=== PATIENT | female | born 1975 | race Caucasian/White ===

== ENCOUNTER → 2018-03-22 07:19 | Outpatient (CLI) | payer OTHER, SELFPAY ==
[2018-03-22 08:44] LABS: Thyroid Stimulating Hormone 1.52 uIU/ml (0.358-3.740)
== END ==
PROVIDERS: Visit Provider Nurse Practitioner
DX: E03.9 Hypothyroidism, unspecified (principal)
CPT/HCPCS: 36415; 84443

== ENCOUNTER → 2020-08-07 12:28 | Outpatient (CLI) | payer OTHER, SELFPAY | PROVIDERS: PCP Family Medicine; Visit Provider Nurse Practitioner Family | DX: G47.30 Sleep apnea, unspecified (principal); I10 Essential (primary) hypertension; R40.0 Somnolence; R51.9 Headache, unspecified; R06.83 Snoring | CPT/HCPCS: 95806 ==

== ENCOUNTER 2021-03-30 08:30 | Outpatient (RCR) | payer OTHER, SELFPAY | END 2021-03-30 08:35 | disposition home or self-care (01) | LOC: PT 08:30 | PROVIDERS: PCP Family Medicine; Visit Provider Orthopaedic Surgery Adult Reconstructive Orthopaedic Surgery | DX: S83.412A Sprain of medial collateral ligament of left knee, initial encounter (principal) | CPT/HCPCS: 97010; 97014; 97033; 97035; 97110; 97163; 97164; 97530; G0283 ==

== ENCOUNTER → 2021-12-30 13:37 | Outpatient (CLI) | payer OTHER, SELFPAY ==
--- NOTE | 2021-12-30 13:44 | XR_ITS ---
FINAL REPORT CLINICAL HISTORY: DISORDER OF RIGHT ROTATOR CUFF FINDINGS: Right shoulder Three views were obtained. There is no acute fracture or dislocation. There is mild AC joint arthropathy. No soft tissue abnormality is identified. IMPRESSION: No acute process. Reviewed, Interpreted and Dictated by Ariana Nunez MD Transcribed by Toyin Lombardo Authenticated and [facility]
== END ==
PROVIDERS: PCP Nurse Practitioner Family; Visit Provider Nurse Practitioner
DX: M67.911 Unspecified disorder of synovium and tendon, right shoulder (principal)
CPT/HCPCS: 73030

== ENCOUNTER 2022-02-04 17:00 | Outpatient (RCR) | payer OTHER, SELFPAY | END 2022-02-04 17:05 | disposition home or self-care (01) | LOC: PT 17:00 | PROVIDERS: PCP Nurse Practitioner Family; Visit Provider Nurse Practitioner | DX: M67.911 Unspecified disorder of synovium and tendon, right shoulder (principal) | CPT/HCPCS: 97010; 97014; 97033; 97110; 97112; 97140; 97163; 97164; G0283 ==

== ENCOUNTER → 2022-03-02 13:26 | Outpatient (CLI) | payer OTHER, SELFPAY | PROVIDERS: PCP Nurse Practitioner Family; Visit Provider Nurse Practitioner Family | DX: M25.511 Pain in right shoulder (principal) ==

== ENCOUNTER → 2022-04-14 12:54 | Outpatient (CLI) | payer OTHER, SELFPAY ==
--- NOTE | 2022-04-14 | CA_ITS ---
FINAL REPORT TECHNIQUE: Ultrasound images of the deep venous system were obtained from the left groin to the calf veins. CLINICAL HISTORY: HTN, left knee injury 11/2020 edema since, obesity. COMPARISON: None FINDINGS: The deep venous system is normally compressible. Normal flow is identified. IMPRESSION: No evidence of left lower extremity DVT. Reviewed, Interpreted and Dictated by Geoffrey Hobson III, MD Transcribed by Liv Klein Authenticated and [facility]
== END ==
PROVIDERS: PCP Nurse Practitioner Family; Visit Provider Nurse Practitioner Family
DX: I83.12 Varicose veins of left lower extremity with inflammation (principal); M79.89 Other specified soft tissue disorders
CPT/HCPCS: 93971

== ENCOUNTER → 2023-03-07 02:00 | Outpatient (CLI) | payer OTHER, SELFPAY ==
[2023-03-07 18:38] LABS: Cholesterol 162 mg/dl (140-200); HDL Cholesterol 80 mg/dl (40-60); Triglycerides 62 mg/dl (30-150); VLDL Cholesterol 12 mg/dL (0-40)
[2023-03-07 18:50] LABS: Direct LDL Cholesterol 80.14 mg/dL (100-129)
[2023-03-07 18:56] LABS: T4 (Thyroxine) 10.1 ug/dl (5.53-11.0)
[2023-03-07 19:10] LABS: Thyroid Stimulating Hormone 3.09 uIU/mL (0.465-4.68)
[2023-03-09 10:14] LABS: Triiodothyronine (T3) Free 3.4 pg/mL (2.0-4.4)
== END ==
PROVIDERS: PCP Nurse Practitioner Family; Visit Provider Nurse Practitioner Family
DX: I10 Essential (primary) hypertension (principal); Z13.29 Encounter for screening for other suspected endocrine disorder; Z79.899 Other long term (current) drug therapy
CPT/HCPCS: 80061; 84436; 84443; 84481

== ENCOUNTER 2024-04-12 13:46 | Outpatient (CLI) | payer OTHER, SELFPAY ==
--- NOTE | 2024-04-12 13:51 | XR_ITS ---
FINAL REPORT CLINICAL HISTORY: right foot pain COMPARISON: None FINDINGS: RIGHT FOOT 3 views of the right foot were obtained. There is no acute fracture or dislocation. Visualized joint spaces are normally aligned. A moderate plantar calcaneal spur is present. Soft tissues are unremarkable. IMPRESSION: No acute bony abnormality. Reviewed, Interpreted and Dictated by Pietro Mcgill MD Transcribed by Rina Lopez Authenticated and [facility]
[2024-04-12 16:31] LABS: Microscopic, Urine URINE MICROSCOPIC (MICROSCOPIC)
[2024-04-12 17:11] LABS: Basophils % 0.2 % (0.1-2.0); Eosinophils # 0.1 K/mm3 (0.0-0.4); Eosinophils % 0.8 % (0.1-12.0); Hematocrit 40.1 % (37.0-47.0); Hemoglobin 13.2 g/dL (12.2-16.2); Lymphocytes # 2.5 K/mm3 (0.7-4.5); Lymphocytes % 25.5 % (10-50); Mean Corpuscular HGB Conc 32.9 g/dL (31.8-35.4); Mean Corpuscular Hemoglobin 28.6 pg (27.0-31.2); Mean Corpuscular Volume 86.8 fl (81-99); Mean Platelet Volume 10.9 fl (7.4-10.4); Monocytes # 0.6 K/mm3 (0.1-1.0); Monocytes % 6.6 % (1.7-9.3); Neutrophils # 6.5 K/mm3 (1.8-7.8); Neutrophils % 66.7 % (37.0-80.0); Platelet Count 327 K/mm3 (142-424); Red Blood Count 4.62 M/mm3 (4.20-5.40); Red Cell Distribution Width 12.9 % (11.5-17.5); White Blood Count 9.7 K/mm3 (4.8-10.8)
[2024-04-12 17:26] LABS: Appearance,Urine CLEAR (Clear); Bilirubin,Urine Negative (Negative); Blood, Urine Negative (Negative); Color,Urine YELLOW (Yellow); Glucose,Urine (UA) Negative (Negative); Ketones,Urine Negative (Negative); Leukocyte Esterase,Urine Negative (Negative); Nitrate,Urine Negative (Negative); Protein,Urine Negative (Negative); Specific Gravity, Urine 1.015 (1.005-1.030); Urobilinogen,Urine 0.2 EU/dl (0.2)
[2024-04-12 18:00] LABS: Alanine Aminotransferase 25 U/L (12-78); Albumin Level 4.3 g/dl (3.5-5.0); Alkaline Phosphatase 54 U/L (38-126); Anion Gap 14.1 mEq/L (5-15); Aspartate Amino Transferase 29 U/L (14-36); Bilirubin,Total 0.5 mg/dl (0.2-1.3); Blood Urea Nitrogen 14 mg/dl (7-17); Calcium 9.2 mg/dl (8.4-10.2); Carbon Dioxide 24 mmol/L (22.0-30.0); Chloride 102 mmol/L (98-107); Chol/HDL Ratio 3.1 (1-3.5); Cholesterol 134 mg/dl (140-200); Estimated Glomerular Filt Rate 108 ml/min (>60); GFR (African American) 130 ML/MIN (>60); Globulin 2.1 g/dL (1.3-3.2); Glucose 78 mg/dl (74-100); HDL Cholesterol 43 mg/dl (40-60); Potassium 4.1 mmoL/L (3.5-5.1); Sodium 136 mmol/L (136-145); Total Protein,Serum 6.4 g/dl (6.3-8.2); Triglycerides 67 mg/dl (30-150); VLDL Cholesterol 13 mg/dL (0-40)
[2024-04-12 18:11] LABS: Direct LDL Cholesterol 75.49 mg/dL (100-129)
[2024-04-12 18:17] LABS: Free T4 (Free Thyroxine) 1.38 ng/dl (0.78-2.19)
[2024-04-12 18:18] LABS: 25-OH Vitamin D, Total 57.5 ng/mL (30-100)
[2024-04-12 18:27] LABS: Hemoglobin A1C 5.1 % (4.0-6.0)
[2024-04-12 19:01] LABS: Iron 87 ug/dL (37-170)
[2024-04-12 19:38] LABS: Ferritin 56.6 ng/ml (6.24-137)
[2024-04-12 19:44] LABS: HIV Combo NEGATIVE (Negative)
[2024-04-12 19:50] LABS: Hepatitis C Ab Qual. W/ RFX NEGATIVE (Negative)
[2024-04-12 19:57] LABS: Bacteria,Urine 3+ /lpf
[2024-04-12 20:12] LABS: Thyroid Stimulating Hormone 1.34 uIU/mL (0.465-4.68); Vitamin B12 704 pg/mL (239-931)
[2024-04-12 21:05] LABS: Total Iron Binding Capacity 359 ug/dL (265-497)
== END 2024-04-12 23:59 | disposition home or self-care (01) ==
LOC: LAB 13:47
PROVIDERS: PCP Nurse Practitioner Family; Visit Provider Nurse Practitioner Family
DX: M79.671 Pain in right foot (principal); R53.83 Other fatigue; Z13.1 Encounter for screening for diabetes mellitus; I10 Essential (primary) hypertension; Z68.42 Body mass index [BMI] 45.0-49.9, adult; Z13.29 Encounter for screening for other suspected endocrine disorder; Z11.4 Encounter for screening for human immunodeficiency virus [HIV]; Z11.59 Encounter for screening for other viral diseases
CPT/HCPCS: 73630; 80053; 80061; 81001; 82306; 82607; 82728; 83036; 83540; 83550; 84156; 84439; 84443; 85025; 86803; 87086; 87389

== ENCOUNTER 2024-05-03 17:00 | Outpatient (RCR) | payer OTHER, SELFPAY | END 2024-05-03 23:59 | disposition home or self-care (01) | LOC: PT 17:00 | PROVIDERS: Visit Provider Podiatrist Foot & Ankle Surgery | DX: M79.671 Pain in right foot (principal); S96.111D Strain of muscle and tendon of long extensor muscle of toe at ankle and foot level, right foot, subsequent encounter | CPT/HCPCS: 97014; 97016; 97035; 97110; 97163; 97530; G0283 ==

== ENCOUNTER 2024-05-31 15:00 | Outpatient (RCR) | payer OTHER, SELFPAY | END 2024-05-31 23:59 | disposition home or self-care (01) | LOC: PT 15:00 | PROVIDERS: Visit Provider Podiatrist Foot & Ankle Surgery | DX: M77.51 Other enthesopathy of right foot and ankle (principal) | CPT/HCPCS: 20560; 97014; 97016; 97035; 97110; 97140; 97530; G0283 ==

== ENCOUNTER 2024-06-11 17:00 | Outpatient (RCR) | payer OTHER, SELFPAY | END 2024-06-11 23:59 | disposition home or self-care (01) | LOC: PT 17:00 | PROVIDERS: Visit Provider Podiatrist Foot & Ankle Surgery | DX: M77.51 Other enthesopathy of right foot and ankle (principal) | CPT/HCPCS: 97014; 97110; 97112; G0283 ==

== ENCOUNTER 2025-01-08 14:35 | Outpatient (CLI) | payer OTHER, SELFPAY ==
--- OUTSIDE RECORDS SUMMARY | 2025-01-08 14:37 | XMS_ITS | Clinical Summary ---
[facility] Address [address] [place] [address] Care Team Providers Care Logistics Research Engineer Name Role Phone Brigido Zambrano Primary Care Provider + Allergies Active Allergy Reactions Criticality Noted Date Comments Amoxicillin Rash Low 03/07/2023 Medications multivitamin with minerals tablet tablet Take 1 tablet by mouth Daily. Active amLODIPine (NORVASC) 5 MG tablet Take 1 tablet by mouth Every Night. 04/20/2022 Active Active Problems No known active problems Resolved Problems Problem Noted Date Diagnosed Date Resolved Date Abnormal uterine bleeding (AUB) 06/02/2023 06/15/2023 Overview (06/02/2023): U/S 10/2022- endometrium- 4mm. Labs 01/2023 normal. Failed mirena, however, it was too low in the cavity. Failed slynd. . EMB performed . Stop slynd, start aygestin. RTO 2 weeks with [place] for U/S and discuss management. She may consider another mirena Family History Medical History Relation Name Comments Hypertension Father Jayce Buckner Hypertension Mother Ethel buckner Breast cancer Neg Hx Colon cancer Neg Hx Ovarian cancer Neg Hx Uterine cancer Neg Hx Relation Name Status Comments Father Jayce Buckner Mother Ethel buckner Social History Tobacco Use Types Packs/Day Years Used Date Smoking Tobacco: Never Tobacco Cessation:Counseling Given: Not Answered Alcohol Use Standard Drinks/Week Comments Never 0 (1 standard drink = 0.6 oz pur e alcohol) Abuse Screen Answer Date Recorded Unsafe at Home or Work/School Not on file Feels Threatened by Someone? Not on file 02/2024 Does Anyone Keep You from Co ntacting Others or Doint Things Outside the Home? Not on file 11/13/2023 Physical Sign of Abuse Present Not on file 0 11/13/2023 Housing Stability Answer Date Recorded Current Living Arrangements Not on file 11/02 Potentially Unsafe Housing Conditions Not on ganesh e 11/13/2023 Family and Community Support Answer Shreyas e Recorded Help with Day-to-Day Activities Not on file 01/10/2023 Lonely or Isolated Not on file 01/10/2023 Employment Answer Date Recorded Do you want help finding or keeping work or a graciela b? Not on file 01/10/2023 Disabilities Answer Date Recorded Concentrating, Remembering, or Making Decisions Difficulty Not on file 11/13/2023 Doing Errands Independently Difficulty Not on fi le 11/13/2023 Education Answer Date Recorded Help with school or training? Not on file Preferred Language Not on file 11/08/2023 Comments No Sex and Gender Information Value Date Recorded Sex Assigned at Not on file Legal Sex Female 1:18 PM EDT Gender Identity Not on file Sexual Orientation Not on file Last Filed Vital Signs Vital Sign Reading Time Taken Comments Blood Pressure 146/98 07/27/2023 2:34 PM EDT Pulse 54 11/11/2022 3:30 PM EDT Temperature 36.2 C (97.2 F) 11/11/2022 3:30 PM EDT Respiratory Rate 18 06/02/2023 3:48 PM EST Oxygen Saturation 100% 11/11/2022 3:30 PM EDT Inhaled Oxygen Concentration - - Weight 107 kg (236 lb 6.4 oz) 07/27/2023 2:34 PM EDT Height 154.9 cm (5' 0.98 ) 07/27/2023 2:34 PM ED T Body Mass Index 44.7 07/27/2023 2:34 PM EDT Plan of Treatment Upcoming Encounters Date Type Department Care Team (Late st Contact Info) Description 01/17/2025 8:20 AM EDT Appointment [facility] [address] [place] [address] Health Maintenance Due Date Last Done Comments TDAP/TD VACCINES (1 - Tdap) 1996 ANNUAL PHYSICAL 01/13/2022 HEPATITIS C SCREENING 01/13/2022 COLOGUARD 2022 COLON CANCER SCREENING 5 YEAR SIGMOIDOSCOPY 2022 COLONOSCOPY 2022 COLORECTAL CANCER SCREENING 2022 CT COLONOGRAPHY 2022 FECAL OCCULT BLOOD TEST 2022 FIT Testing (1 year) 2022 Annual Gynecologic Pelvic and Breast Exam 01/14/2023 01/13/2022 INFLUENZA VACCINE 11/02/2024 03/07/2023 PAP SMEAR 01/13/2025 01/13/2022 MAMMOGRAM 01/15/2026 01/16/2024, 01/02, 01/14/2023, Additional history exists Pneumococcal Vaccine 0-49 Aged Out No longer eligible based on patient's age to complete this topic Medical Devices Implanted Type Area Councilor Device Identifier Shelf Expiration Date Model / Serial / Lot Sys Sut/Anch Biocomp Speedbridge 4.85 12.5 - [id number] Implanted:Qty: 1 on 11/11/2022 by Schuyler Shields MD at [facility] Implant Right: Shoulder ARTHREX 10/01/2026 [id number] / / [id number] Sys Imp Sut/Anch Tenod/Shldr Loopntak Biocomp/Pushlo ck4.75mm - [id number] Implanted:Qty: 1 on 11/11/2022 by Schuyler Shields MD at [facility] Implant Right: Shoulder ARTHREX [id number] 07/02/2026 [id number] / / [id number] Procedures Procedure Name Priority Date/Time Associated Diagnosis Comments MAMMO SCREENING DIGITAL TOMOSYNTHESIS BILATERAL W CAD Routine 01/13/2024 9:17 AM EDT Encounter for screening mammogram for breast cancer LIQUID-BASED PAP SMEAR, [facility]) Routine 01/13/2022 1:40 PM EDT Pap test, as part of routine gynecological examination from Last 3 Months or Most Recently Relevant to Health Maintenance Results * Mammo Screening Digital Tomosynthesis Bilateral With CAD (01/13/2024 9:17 AM EDT) Anatomical Region Laterality Modality Breast N/A Mammography 01/16/2024 4:44 PM EDT Impressions 01/16/2024 4:45 PM EDT No suspicious abnormality identified. OVERALL ASSESSMENT: ACR BI-RADS CATEGORY: 1, NEGATIVE: Recommend continued routine annual screening mammogram. The standard false-negative rate of mammography is between 10% and 25%. Complex patterns or increased breast density will markedly elevate the false-negative rate of mammography. A letter, in lay terminology, with the results of this exam will be mailed to the patient. This report was finalized on 01/16/2024 4:45 PM by Ирина Barros MD. Narrative 01/16/2024 4:45 PM EDT BILATERAL DIGITAL SCREENING MAMMOGRAM WITH TOMOSYNTHESIS CLINICAL INDICATION: Screening mammogram. TECHNIQUE: Bilateral low dose full field digital breast tomosynthesis imaging was performed. CAD was utilized. COMPARISON: Prior studies dating back to 01/22/2022. FINDINGS: There are scattered fibroglandular densities. RIGHT BREAST: No suspicious masses, calcifications, or areas of distortion are seen. LEFT BREAST: No suspicious masses, calcifications, or areas of distortion are seen. Apolonia Max MD IM MAMMOGRAPHY ORDERABLES Final Result * LIQUID-BASED PAP SMEAR, [facility]) (01/13/2022 1:40 PM EDT) Pathologist [facility] Reference Lab Report [facility] [address] [place] [address] or [phone] Kevin Alcala M.D., Balance Wheel Screw Hole Driller PATIENT NAME [facility] [id number] AGE SEX SSN CLIENT REF # [facility] [id number] F [id number] Diane PATRICIO REQUESTING Yaya [place] [address] APOLONIA MAX DATE COLLECTED DATE RECEIVED DATE REPORTED 01/13/2022 01/13/2022 01/15/2022 ThinPrep Pap with Cytyc Imaging DIAGNOSIS: Negative for intraepithelial lesion or malignancy Multiple factors can influence accuracy of Pap tests; therefore, screening at regular intervals is necessary for early cancer detection. SPECIMEN ADEQUACY: SATISFACTORY FOR EVALUATION Transformation zone is present. SOURCE OF SPECIMEN: CERVICAL SLIDES: 1 CLINICAL HISTORY: Pap test, as part of routine gynecological examination HPV HR-HPV POOL: Negative The Aptima HPV assay is an in vitro nucleic acid amplification test for the qualitative detection of E6/E7 viral messenger RNA from 14 high risk types of HPV in cervical specimens. The high risk HPV types detected include: 16, 18, 31, 33, 35, 39, 45, 51, 52, 56, 58, 59, 66, 68 BILL COLLECTOR: KUN CABALLERO (ASCP) CPT CODES: 96431, 30678 01/15/2022 8:00 AM EDT [facility] ThinPrep Vial Cervix uteri structure / Unknown Collection / Unknown 01/13/2022 1:40 PM EDT 01/13/2022 1:40 PM EDT Apolonia Max MD PATHOLOGY/CYTOLOGY ORDERABLES nal Result [facility]
[address] [place] [address], from Last 3 Months or Most Recently Relevant to Health Maintenance Insurance [facility] Care Teams Logistics Research Engineer Relationship Specialty Start Date End Date Brigido Zambrano DO [address] [place] [id number] PCP - General Internal Medicine 02/28/23
== END 2025-01-08 23:59 | disposition home or self-care (01) ==
LOC: LAB.DROPOF 14:35
PROVIDERS: PCP Nurse Practitioner Family; Visit Provider Nurse Practitioner Family
DX: N39.0 Urinary tract infection, site not specified (principal)
CPT/HCPCS: 87086; 87088